=== PATIENT | male | born 1990 | race Two or more races ===

== ENCOUNTER 2017-11-18 11:26 | Day surgery (SDC) | payer OTHER ==
[2017-11-18] MEDS ORDERED: Ondansetron INJ* 2 MG/ML VIAL IV ONE (11:51)
[2017-11-18] MEDS ORDERED: Morphine INJ* 4 MG/ML 1 ML CARPUJECT IV ONE (11:51)
[2017-11-18] MEDS ORDERED: ceFAZolin 1 GM VIAL(*) 1 GM in NS 0.9% 50 ML* 50 ML IVPB ONE (12:23)
--- NOTE | 2017-11-18 12:23 | RAD ---
Indication: Crush injury RIGHT second finger. Comparison: No relevant prior exams available [place] [facility] [place]. Technique: 3 views RIGHT second finger. Report: Marked soft tissue contour deformity and subcutaneous emphysema at the tip of the finger with associated comminuted fracture of the tuft with up to 1 cm distal displacement. Normal articular alignment. IMPRESSION: Displaced compound fracture of the distal phalanx. Appearance of degloving type injury.
[2017-11-18] MEDS ORDERED: Bupivacaine 0.25% SDV* 30 ML INJ ONE (12:37)
[2017-11-18] MEDS ORDERED: Morphine INJ* 4 MG/ML 1 ML SYRINGE (NEW SYRINGE VERSION) ONE (12:39)
--- NOTE | 2017-11-18 13:54 | ED ---
Upper Extremity Pain - HPI Summary HPI Summary: Patient is an otherwise healthy 26-year-old female who presents to the ED with right index finger injury. He states he smashed the finger between a cow and a gate at work this morning. Bleeding is moderate. Pain is rated a 4 out of 10, constant and throbbing. 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 He has not taken anything for the pain. - History of Current Complaint Chief Complaint: EDExtremityUpper Stated Complaint: RT FINGER INJURY Time Seen by Provider: 11/18/17 11:48 Hx Obtained From: Patient Mechanism Of Injury: Blunt Trauma Onset/Duration: Started Hours Ago Timing: Constant Severity Initially: Moderate Severity Currently: Moderate Pain Location: Finger Character: Aching Alleviating Factor(s): Nothing Associated Signs & Symptoms: Positive: Swelling Related History: Dominant Hand Right - Risk Factors Non-Orthopedic Risk Factor: Negative DVT Risk Factors: Negative Septic Arthritis Risk Factor: Negative Compartment Syndrome Risk Factors: Pain - Allergies/Home Medications Allergies/Adverse Reactions: Allergies Allergy/AdvReac Type Severity Reaction Status Date / Time No Known Allergies Allergy Verified 11/18/17 12:52 Home Medications: Home Medications NK [No Home Medications Reported] 11/18/17 [History Confirmed 11/18/17] PMH/Surg Hx/FS Hx/Imm Hx Previously Healthy: Yes - Immunization History Hx Pertussis Vaccination: No Immunizations Up to Date: Unable to Obtain/Confirm Infectious Disease History: No Infectious Disease History: Denies: Traveled Outside the [place] in Last 30 Days - Social History Occupation: Employed Full-time Lives: With Family Alcohol Use: None Hx Substance Use: No Substance Use Type: Reports: None Hx Tobacco Use: No Smoking Status (MU): Never Smoked Tobacco Review of Systems Constitutional: Negative Negative: Fever, Chills, Fatigue Eyes: Negative Cardiovascular: Negative Genitourinary: Negative Positive: no symptoms reported, see HPI Musculoskeletal: Negative Positive: Other - avulsion of the distal tip of the right index fingertip Neurological: Negative All Other Systems Reviewed And Are Negative: Yes Physical Exam Triage Information Reviewed: Yes Vital Signs On Initial Exam: Initial Vitals Temp Pulse Resp BP Pulse Ox 97.7 F 75 16 130/78 100 11/18/17 11:28 11/18/17 11:28 11/18/17 11:28 11/18/17 11:28 11/18/17 11:28 Vital Signs Reviewed: Yes Appearance: Positive: Well-Appearing, Well-Nourished Skin: Positive: Warm, Skin Color Reflects Adequate Perfusion Head/Face: Positive: Normal Head/Face Inspection Eyes: Positive: EOMI, OLGA LIDIA, Conjunctiva Clear Neck: Positive: Supple, No Lymphadenopathy Respiratory/Lung Sounds: Positive: Clear to Auscultation, Breath Sounds Present Cardiovascular: Positive: Normal, RRR, Pulses are Symmetrical in both Upper and Lower Extremities Musculoskeletal: Positive: Pain @ - Right index distal tip fingertip Neurological: Positive: Speech Normal Diagnostics - Vital Signs Vital Signs Temp Pulse Resp BP Pulse Ox 11/18/17 12:50 20 11/18/17 11:28 97.7 F 75 16 130/78 100 - Laboratory Lab Statement: Any lab studies that have been ordered have been reviewed, and results considered in the medical decision making process. Course/Dx - Course Course Of Treatment: During the course of treatment, the patient was evaluated for right distal fingertip avulsion. Bleeding is moderate. Dr. Weems called who agrees to come see patient. 1 g Ancef, Zofran and morphine given. Last PO intake was 8:30 AM. Denies any allergies. Digital block obtained with bupivacaine. Washed the injury well with irrigation normal saline. Leonard drain as a tourniquet just distal to the MCP joints, Surgicel applied to the wound and tube gauze wrapped. Patient is stable and awaiting surgery. Vital signs are stable. - Diagnoses Differential Diagnosis/HQI/PQRI: Positive: Fracture (Open), Fracture (Closed) Provider Diagnoses: Avulsion, skin Discharge - Discharge Plan Condition: Stable Disposition: OTHER Discharge Disposition Comment: Discharged to surgery
[2017-11-18] MEDS ORDERED: Bupivacaine 0.25% SDV* 30 ML ONE (18:53)
[2017-11-18] MEDS ORDERED: Naloxone* 0.4 MG/ML 1 ML VIAL IV PRN (19:12)
[2017-11-18] MEDS ORDERED: Midazolam* 1 MG/ML 2 ML VIAL (2 MG) ONE ×2 (19:18→19:24)
[2017-11-18] MEDS ORDERED: fentaNYL* 50 MCG/ML 2 ML VIAL (100 MCG VIAL) ONE (19:20)
[2017-11-18] MEDS ORDERED: Propofol* 10 MG/ML 20 ML BTL IV PUSH ONE (19:28)
[2017-11-18] MEDS ORDERED: ceFAZolin 1 GM VIAL(*) ONE (19:28)
[2017-11-18] MEDS ORDERED: Lidocaine 2% PF * 5 ML VIAL ONE (19:28)
[2017-11-18] MEDS ORDERED: Ketorolac INJ* 30 MG/ML 1 ML VIAL ONE (20:53)
[2017-11-18] MEDS ORDERED: HYDROcodone/ACETAMIN 5-325 MG* 1 TAB ONE (21:12)
[2017-11-18 21:16] VITALS: BP 128/90
[2017-11-19] MEDS ORDERED: Ketorolac INJ* 30 MG/ML 1 ML VIAL IV PRN (09:44)
[2017-11-19] MEDS ORDERED: Naloxone* 0.4 MG/ML 1 ML VIAL IV PRN (09:44)
[2017-11-19] MEDS ORDERED: fentaNYL* 50 MCG/ML 2 ML VIAL (100 MCG VIAL) IV PRN (09:44)
--- NOTE | 2017-11-23 14:27 | OP ---
DATE OF OPERATION: 11/18/17 - [facility] DATE OF : 89 SURGEON: Steve Weems MD COMPLETION MANAGER: VINCE Avila ANESTHESIOLOGIST: Erich Schaeffer DO ANESTHESIA: Local MAC. PRE-OP DIAGNOSIS: Right index finger partial amputation. POST-OP DIAGNOSIS: Right index finger partial amputation. OPERATIVE PROCEDURE: Revision amputation right index finger through the proximal aspect of the distal phalanx with removal and ablation of the nail bed and digital neurectomies. INDICATIONS: Jonas was working [place] the [place] when he got the finger caught between a cow and a gate. The history was conducted in Greek with the use of phone stores assistant. I talked to him about his treatment options and told him that this would require shortening as he had pretty significant loss of the distal end of the finger. I told him I would try to save as much length as possible. ESTIMATED BLOOD LOSS: 10 mL. COMPLICATIONS: None. FINDINGS: As expected. DESCRIPTION OF PROCEDURE: Jonas was seen in the preoperative holding area. The correct side, site and procedure were identified. We came back to the operating room where the arm was prepped and draped in the usual fashion. A digital block was performed. I placed a tourniquet on the finger and then distally I came back and cleaned up the distal end of the soft tissue, I irrigated out the area copiously and assessed how much soft tissue I had to work with. There was quite a bit of volar loss of the soft tissue and quite a bit of exposed bone distally. The soft tissue was released about the bone and a bone cutter was used to trim it back preserving the last 4-5 mm of the distal phalanx. I ablated the dorsal nail bed and excising the entirety of germinal matrix. I excised the digital nerves. At this point, I was able to bring a volar flap of soft tissue up and sutured in place with 4-0 nylon suture. I was able to preserve the insertion of the FTP tendon as well as the terminal extensor tendon. The tourniquet was set off and the flap pinked up. The wound was dressed with Xeroform, 1 inch Sean and a Coban dressing. He was then taken to recovery room in stable condition. [id number]/[facility] #: [id number] [facility]
== END 2017-11-18 21:40 | disposition home or self-care (01) ==
LOC: ED 11:26 → OR 15:36
PROVIDERS: ATTEND Orthopaedic Surgery Hand Surgery
DX: S68.620A Partial traumatic transphalangeal amputation of right index finger, initial encounter (principal); W23.0XXA Caught, crushed, jammed, or pinched between moving objects, initial encounter; Y93.89 Activity, other specified; Y92.79 Other farm location as the place of occurrence of the external cause; Y99.0 Civilian activity done for income or pay
CPT/HCPCS: 73140; 88302; 96374; 96375; 99283; J0690; J1885; J2250; J2270; J2405; J2704; J3010